=== PATIENT | female | born 1940 | race Caucasian/White ===

== ENCOUNTER 2017-05-14 11:36 | Emergency (ER) | payer MEDICARE ==
[2017-04-29 15:15] VITALS: BMI 25.5
[~2017-05-14 11:36] MED LIST: COUMADIN5 MG PO; FEXOFENADINE HC60 MG PO; FLUTICASONE PRO16 GM NASAL; FUROSEMIDE20 MG PO; GLIMEPIRIDE4 MG PO; KLOR-CON M2020 MEQ PO; LEVAQUIN750 MG PO; LIPITOR40 MG PO; LISINOPRIL5 MG PO; SYNTHROID75 MCG PO; ZANTAC150 MG PO
[2017-05-14 12:25] LABS: HEMATOCRIT 39.8 % (36.0-48.0); HEMOGLOBIN 12.6 g/dL (12-16); MCH 30.4 pg (26.0-34.0); MCHC 31.7 g/dL (31.0-37.0); MCV 96.1 fL (80.0-100.0); MEAN PLATELET VOLUME 11.2 fL (7.4-10.4); PLATELET COUNT 101 10x3/uL (130-400); RBC 4.14 10x6/uL (4.00-5.40); RDW 14.4 % (11.5-14.5); WBC 2.3 10x3/uL (4.8-10.8)
[2017-05-14 12:49] LABS: ALBUMIN 3.9 g/dL (3.4-5.0); ALKALINE PHOSPHATASE 165 U/L (46-116); ALT (SGPT) 68 U/L (10-68); BILIRUBIN - TOTAL 1.71 mg/dL (0.2-1.3); CALC OSMOLALITY 277 mosm/kg (275-300); CALCIUM 8.6 mg/dL (8.5-10.1); CARBON DIOXIDE 29.8 mmol/L (21.0-32.0); CHLORIDE - SERUM 102 mmol/L (98-107); CREATININE - SERUM 0.7 mg/dL (0.6-1.3); GLUCOSE 101 mg/dL (74-106); POTASSIUM - SERUM 3.9 mmol/L (3.5-5.1); PROTEIN - SERUM 7.2 g/dL (6.4-8.2); SODIUM 139 mmol/L (136-145); UREA NITROGEN 13 mg/dL (7-18); eGFR NON AFRICAN AMERICAN 86 mL/min (90-120)
[2017-05-14 13:16] LABS: BASOPHILS 1 % (0-2); EOSINOPHILS 1 % (0-7); LYMPHOCYTES 29 % (15-50); MONOCYTES 9 % (2-11); NEUTROPHILS 58 % (40-80); PLATELET ESTIMATE DECREASED
[2017-05-14 13:58] LABS: APTT 41.8 SECONDS (22.8-39.4); INR 2.17 (0.85-1.17); PROTIME 23.5 SECONDS (11.6-15.0)
[2017-05-14 14:28] LABS: AMYLASE - SERUM 47 U/L (25-115); CREATINE KINASE 34 UL (21-215); LIPASE 192 U/L (73-393); PRO BNP 215 pg/mL (0-450)
[2017-05-14 14:38] LABS: APPEARANCE HAZY (CLEAR); BILIRUBIN NEGATIVE (NEGATIVE); COLOR DK YELLOW (YELLOW); GLUCOSE NEGATIVE (NEGATIVE); KETONE NEGATIVE (NEGATIVE); NITRITE NEGATIVE (NEGATIVE); PROTEIN NEGATIVE (NEGATIVE); SPECIFIC GRAVITY 1.015 (1.005-1.020); UROBILINOGEN NORMAL (NORMAL)
[2017-05-14 14:39] LABS: WHITE CELLS - URINE 0-5 /hpf (0-5)
[2017-05-14 14:40] LABS: BACTERIA MODERATE /hpf (NONE SEEN)
[2017-05-14 14:42] LABS: AMORPHOUS SEDIMENT <1+ /lpf (NONE SEEN)
[2017-05-14 14:43] LABS: YEAST RARE /hpf (NONE SEEN)
[2017-05-14 14:43] LABS: TROPONIN-I < 0.017 ng/mL (0.000-0.060)
== END 2017-05-14 19:22 | disposition home or self-care (01) ==
LOC: D.ER 11:36
PROVIDERS: Emergency Medicine; Nurse Practitioner Family
DX: K52.9 Noninfective gastroenteritis and colitis, unspecified (principal); R53.1 Weakness; R19.7 Diarrhea, unspecified; R11.2 Nausea with vomiting, unspecified